=== PATIENT | female | born 1975 | race Two or more races ===

== ENCOUNTER 2024-09-16 16:36 | Emergency (ER) | payer BC, SELFPAY ==
[2024-09-16 16:40] VITALS: BP 136/68; PULSE 73; RESP 18; TEMP 36.9; O2SAT 100; BMI 38.5
--- NOTE | 2024-09-16 16:40 | ED.EYEPROB ---
HPI - Eye Problem General Chief complaint: Eye Problems Stated complaint: eye pain; foreign object in eye Time Seen by Provider: 09/16/24 16:56 Source: patient and RN notes reviewed Mode of arrival: ambulatory Limitations: no limitations History of Present Illness ED Provider: Heather Mckeon PA-C HPI Narrative: This is a 49-year-old female who presents emergency department with complaints of left eye irritation for the last 2 days. Patient states that she has noticed increased redness to her left eye, denies any changes in vision, she denies any eye pain, she reports slight itchiness. She denies any known foreign body into her left eye. She does report slight increased tearing. No fevers, chills, recent illness, cough, congestion, abdominal pain, nausea, vomiting or diarrhea. She was not wear contact lenses. She has tried [id number] eyedrops which has provided her with minimal relief. No other complaints or concerns at this time. MD chief complaint: eye redness Duration: constant Location: left eye Eye Symptoms: foreign body sensation Place: home Mechanism: none Severity: mild If Pain, Quality: aching Associated symptoms: none Treatments Prior to Arrival: none Related Data Previous Rx's ?Medication ?Instructions ?Recorded erythromycin 5 mg/gram (0.5 %) eye 0.5 inch ophthalmic (eye) QID #3.5 09/16/24 ointment grams Allergies Allergy/AdvReac Type Severity Reaction Status Date / Time No Known Allergies Allergy Verified 09/16/24 16:42 Review of Systems Review of Systems: Yes all other systems are reviewed and are negative PMFSH Social History Social History Advance Directives: No Advance Directives Information Provided: No Physical Exam Vital Signs: Vital Signs: Last Vital Signs Temp 98.4 F 09/16/24 17:04 Pulse 73 09/16/24 17:04 Resp 18 09/16/24 17:04 BP 136/68 09/16/24 17:04 Pulse Ox 100 09/16/24 17:04 O2 Del Method Room Air 09/16/24 17:04 BMI result Body Mass Index 38.5 Const: Other: General: Awake, alert, and oriented X3. No acute distress. HEENT: Normal inspection. Left eye with slight conjunctival injection noted overlying the lateral canthus. Fluorescein stain was performed, she has a corneal abrasion noted at the 3:00 a.m. position just 2 mm outside of the iris. No foreign body appreciated. Extraocular pressures are 16 mmHg bilaterally. No vision changes appreciated on examination. CVS: Normal heart rate and rhythm. Pulses normal. Respiratory: No respiratory distress Skin: Warm, dry, no rashes noted to exposed skin. Normal skin color. Normal skin turgor. Extremities: Normal to inspection Neuro: Oriented X 3. No motor deficit. No sensory deficit. Course Course Course Narrative: This is an RME: Additional HPI, ROS, PE not included below will be deferred to primary provider. RME assessment and note performed by: Heather Mckeon PA-C This is a 49-year-old female who presents emergency department with complaints of ?FB left eye Plan: Medications Administered Discontinued Medications Generic Name Dose Route Start Last Admin Trade Name Freq PRN Reason Stop Dose Admin Fluorescein Sodium 1 strip 09/16/24 16:45 09/16/24 16:50 Fluorescein Sodium Strip EYE-LEFT 09/16/24 16:46 1 strip ONCE ONE Administration Tetracaine HCl 1 drop 09/16/24 16:45 09/16/24 16:50 Tetracaine Hcl/Pf 0.5% Oph Diane 4 Ml Drops EYE-RIGHT 09/16/24 16:46 1 drop ONCE ONE Administration Medical Decision Making Medical Decision Making MDM Narrative: This is a 49-year-old female who presents emergency department with complaints of left eye irritation for the last 2 days. On arrival, vital signs within normal limits. She is speaking full sentences under no acute distress. She is not a contact lens wearer. She is unsure if she got any foreign body into her left eye. Fluorescein stain was performed, she does have slight fluorescein uptake noted at the 3 o'clock position in her left eye with mild conjunctival injection. No drainage. She has had no vision changes or severe eye pain. Differential diagnoses include corneal abrasion, laceration, foreign body, conjunctivitis, scleritis, less likely closed angle glaucoma. Discussed overall workup with patient today. Will treat with erythromycin ointment. Given Dr. Jesus Manuel williamson referral should her symptoms persist. Given strict return precautions, patient stable for discharge. Differential Diagnosis Differential Diagnoses: The differential diagnosis associated with the presentation includes See above Discharge Plan Discharge Clinical Impression: Corneal abrasion Patient Disposition: Home, Self-Care Instructions: Corneal Abrasion (ED) Additional Instructions: you were seen in the emergency department due to left eye irritation. You have a corneal abrasion noted to your left eye which is likely causing you to have the symptoms. Please use antibiotic ointment as prescribed, finish the entire course even if your symptoms improve. Use this 4 times a day for 7 days. If you continue to have symptoms, please follow-up with the dealer support technician, call to make an appointment. If any new or worsening symptoms occur including but not limited to changes in vision, severe eye pain, swelling, please seek emergent care. Prescriptions: New erythromycin 5 mg/gram (0.5 %) ointment 0.5 inch ophthalmic (eye) QID Qty: 3.5 0RF Referrals: Negro Quintero [Physician] - Interventions: ED Discharge Assessment Last Done: 09/16/24 17:04 Discharge Date/Time: 09/16/24 17:05 Print Language: Serbian
[2024-09-16] MEDS: Tetracaine HCl/PF 0.5% Oph Sol 4 ML DROPS 1 DROP EYE-RIGHT (16:50)
[2024-09-16] MEDS: Fluorescein Sodium STRIP 1 STRIP EYE-LEFT (16:50)
[2024-09-16 17:04] VITALS: BP 136/68; PULSE 73; RESP 18; TEMP 36.9; O2SAT 100
== END 2024-09-16 17:05 | disposition home or self-care (01) ==
PROVIDERS: Emergency Provider Emergency Medicine Emergency Medical Services
DX: S05.02XA Injury of conjunctiva and corneal abrasion without foreign body, left eye, initial encounter (principal); X58.XXXA Exposure to other specified factors, initial encounter; Y93.9 Activity, unspecified; Y92.9 Unspecified place or not applicable; Y99.8 Other external cause status
CPT/HCPCS: 99282; 99283